=== PATIENT | female | born 1955 | race Caucasian/White ===

== ENCOUNTER → 2017-01-21 | Outpatient (CLI) | payer OTHER ==
[~2017-01-21] MED LIST: ASPIRIN 325 MG TABLET ONE
--- NOTE | 2017-01-21 15:51 | PCVCIMAG ---
APPROVED REPORT Exam: Stress Echocardiogram Indication: Chest pain/Jaw pain, fam hx CAD Stress Nurse: Shasha Wells RN Status: routine HR: 72 bpm Rhythm: NSR Medical History Medical History: Smoking Cardiac Risk Factors: Tobacco History (Current/Recent), HTN, FHX of CAD Pretest Chest Pain Characteristics: No chest pain Procedure The patient underwent an Exercise Stress Test using the [place] Protocol. Blood pressure, heart rate, and EKG were monitored. An Echocardiogram was performed by weight reducing technician in four stages in quad fashion. At peak stress, four selected images were obtained and placed side by side with resting images for comparison. Stress Test Details Stress Test: Exercise stress testing was performed using a [place] protocol. HR Resting HR: 72 bpmMax Heart Rate (APMHR): 161 bpm Max HR Achieved: 142 bpmTarget HR (85% APMHR): 136 bpm % of APMHR: 88 Recovery HR: 97 bpm HR response to stress: Normal HR response to stress BP Resting BP: 148/90 mmHg Max BP: 160/84 mmHg Recovery BP: 124/66 mmHg ECG Resting ECG: Sinus Rhythm Stress ECG: Sinus Rhythm with isolated PVCs ST Change: Inferior T wave inversion in recovery Arrhythmia: VPC's Recovery ECG: Sinus Rhythm Recovery ST Change: Inferior ST changes Clinical Reason for Termination: Maximal effort Stress Symptoms: Jaw pain Exercise duration: 9 min 46 sec Highest Stage Achieved: Stage 4: 4.2 mph at 16% grade. Exercise capacity: 12.6 METs Pre-Stress Echo The resting Echocardiogram showed normal left ventricular contractility with an estimated Ejection Fraction of about >55%. Normal wall motion in all segments on baseline images. Post-Stress Echo The stress Echocardiogram showed abnormal left ventricular contractility with an estimated Ejection Fraction of about 55-60%. The stress Echocardiogram demonstrated wall motion abnormality in the inferior wall. Clinical Ischemic ST changes inferiorly in recovery. Conclusion Clinical Response: Ischemic Exercise Capacity: Average Stress ECG Response: Ischemic Stress Echo Images: Ischemic
== END | disposition home or self-care (01) ==
LOC: PCVCIMAG 13:48
PROVIDERS: ATTEND Internal Medicine Cardiovascular Disease
DX: I65.23 Occlusion and stenosis of bilateral carotid arteries (principal); R07.89 Other chest pain; I25.10 Atherosclerotic heart disease of native coronary artery without angina pectoris; Z72.0 Tobacco use; Z82.49 Family history of ischemic heart disease and other diseases of the circulatory system
CPT/HCPCS: 80061; 93005; 93325; 93351; 93880; G0463

== ENCOUNTER → 2017-02-03 | Outpatient (CLI) | payer OTHER | END | disposition home or self-care (01) | LOC: PCVCIMAG 15:54 | PROVIDERS: ATTEND Internal Medicine Cardiovascular Disease | DX: R55 Syncope and collapse (principal) | CPT/HCPCS: 93017 ==

== ENCOUNTER → 2019-07-26 | Outpatient (CLI) | payer OTHER ==
--- NOTE | 2019-07-26 11:41 | PCVCIMAG ---
APPROVED REPORT Study performed: 07/26/2019 10:35:22 Exam: Stress Echocardiogram Indication: CAD, Stent Patient Location: Echo lab Stress Nurse: Nona Robles RN Ht: 5 ft 3 in HR: 78 bpm BP: 110/80 mmHg Rhythm: NSR Medical History Medical History: Smoking, hypertenion, , Hyperlipidemia Procedure The patient underwent an Exercise Stress Test using the [place] Protocol. Blood pressure, heart rate, and EKG were monitored. An Echocardiogram was performed by inventory technician in four stages in quad fashion. At peak stress, four selected images were obtained and placed side by side with resting images for comparison. Stress Test Details Stress Test: Exercise stress testing was performed using a P[place]ito protocol. HR Resting HR: 78 bpmMax Heart Rate (APMHR): 159 bpm Max HR Achieved: 157 bpmTarget HR (85% APMHR): 135 bpm % of APMHR: 98 Recovery HR: 96 bpm HR response to stress: Normal HR response to stress BP Resting BP: 110/80 mmHg Max BP: 160/80 mmHg Recovery BP: 126/82 mmHg BP response to stress: Normal blood pressure response to stress. ECG Resting ECG: Sinus Rhythm Stress ECG: Sinus Rhythm Recovery ECG: Sinus Rhythm Clinical Reason for Termination: Maximal effort Exercise duration: 7 min 19 sec Highest Stage Achieved: Stage 3: 3.4 mph at 14% grade. Exercise capacity: 10.10 METs Overall Exercise Capacity for Age: Normal Pre-Stress Echo The resting Echocardiogram showed normal left ventricular contractility with an estimated Ejection Fraction of about 55-60%. Normal wall motion in all segments on baseline images. Post-Stress Echo The stress Echocardiogram showed normal left ventricular contractility with an estimated Ejection Fraction of about 60-65%. Normal augmentation of wall motion in all segments on post stress images. Clinical No clinical or ECG evidence for ischemia. Conclusion Clinical Response: Non-ischemic Exercise Capacity: Average Stress ECG Response: Non-ischemic Stress Echo Images: Non-ischemic The left ventricle is normal in size and wall thickness in both the rest and stress images. Other Information Study Quality: Adequate <Conclusion> The left ventricle is normal in size and wall thickness in both the rest and stress images.
== END | disposition home or self-care (01) ==
LOC: PCVCIMAG 10:25
PROVIDERS: ATTEND Internal Medicine Cardiovascular Disease
DX: I25.10 Atherosclerotic heart disease of native coronary artery without angina pectoris (principal); E78.5 Hyperlipidemia, unspecified; I10 Essential (primary) hypertension; Z87.891 Personal history of nicotine dependence
CPT/HCPCS: 93325; 93351